=== PATIENT | female | born 1995 | race Caucasian/White ===

== ENCOUNTER 2016-09-01 17:56 | Emergency (ER) | payer MEDICAID ==
[2016-09-01 19:21] VITALS: BMI 30.5
[2016-09-01] MEDS ORDERED: Lactated Ringer's 1,000 ML IV SCH (19:30)
[2016-09-01 20:01] LABS: BASO % 0.2 % (0.0-2.0); EOS # 0.1 K/uL (0.0-0.7); EOS % 0.7 % (0.0-4.0); HEMATOCRIT 35.5 % (34.0-47.0); LYMPH # 1.1 K/uL (1.0-4.3); LYMPH % 10.7 % (20.0-40.0); MEAN CELL VOLUME 70.3 fl (81.0-99.0); MEAN CORPUSCULAR HGB CONC 31.3 g/dL (33.0-37.0); MEAN PLATELET VOLUME 9.8 fl (7.2-11.7); MONO # 0.7 K/uL (0.0-0.8); MONO % 7.1 % (0.0-10.0); NEUT # 8.2 K/uL (1.8-7.0); NEUT % 81.3 % (50.0-75.0); NRBC % 0.2 % (0.0-0.0); RED CELL DISTRIBUTION WIDTH 18.2 % (11.5-14.5); WHITE BLOOD COUNT 10.1 K/uL (4.8-10.8)
[2016-09-01 20:05] LABS: URINE BILIRUBIN NEGATIVE (NEGATIVE); URINE BLOOD NEGATIVE (NEGATIVE); URINE COLOR YELLOW (YELLOW); URINE GLUCOSE (UA) NEG (Normal); URINE KETONE TRACE mg/dL (NEGATIVE); URINE LEUKOCYTE ESTERASE NEG Leu/uL (Negative); URINE PROTEIN 30 mg/dL (NEGATIVE); URINE UROBILINOGEN 0.2-1.0 mg/dL (0.2-1.0)
[2016-09-01 20:14] LABS: ALKALINE PHOSPHATASE 174 U/L (38-126); ALT/SGPT 26 U/L (9-52); AST/SGOT 23 U/L (14-36); BILIRUBIN,TOTAL 0.4 mg/dl (0.2-1.3); BLOOD UREA NITROGEN 8 mg/dl (7-17); CALCIUM 9.2 mg/dL (8.4-10.2); CARBON DIOXIDE 20 mmol/L (22-30); CHLORIDE 105 mmol/L (98-107); GFR AFRICAN-AMERICAN > 60; GLUCOSE,RANDOM 96 mg/dL (65-105); POTASSIUM 3.9 MMOL/L (3.6-5.0); SODIUM 140 mmol/l (132-148); TOTAL PROTEIN 7.5 G/DL (6.3-8.2); URIC ACID 4.2 mg/Dl (2.2-7.5)
[2016-09-01 20:25] LABS: RBC URINE 2 /hpf (0-3); URINE BACTERIA MOD (<OCC); WBC URINE 4 /hpf (0-5)
--- NOTE | 2016-09-01 21:19 | OBHP ---
Datetime: 09/01/2016 19:03 IP Chief Complaint Other: Decreased FM, mucus bloody discharge Admit Comment, IP Provider: 20 y/o at 37w1d, IRMA: 09/21/16 based on US at 6w6d who presents c omplaining of two episodes of scant mucus bloody vaginal discharge, one yesterday and one today after noon around 3 pm and uterine contractions . Patient is unsure about leakage of fluids, and also repo rts decreased movements today. She is complaining of headaches since yesterday associated with nasal congestion, and blurry vision. PMHx: No reported Allergies: NKDA SHx: no reported Social: Denies smoking, etoh, and recreational drugs. Meds: PNV, Iron supplements BID O: VE: by Dr. Maddox : 1 cm, long and high labs: ABO/Rh: A pos, antibody screen: neg, HBsAg: neg, rubella: immune A: 20 y/o at 37w1d with uterine contractions in no active labor,headaches, and blurry visio n x 1 day. Plan: -Observation -VS Q4 -External FHR monitor -IV fluids/1 L bolus -Preeclampsia work up -Re-evaluation -Case discussed with Dr. Varsha Dowd PGY1 Addendum: I saw and examined patient up presentation. Patient observed at [facility]. Patient normotensive and vit al signs stable. Preeclamptic workup negative. heart tracing reactive. Patient discharged home with labor precautions. Varsha FHR - Baseline A Provider: 140 Membranes, Provider: Intact EGA AdmitDate IP: 37.1 Vital Signs Provider: Reviewed Vital Signs Provider Details: Notable for Tachycardic IP Chief Complaint: Uterine contractions; Suspected ruptured membranes NICHD Variability Prov Fetus A: Moderate 6-25bpm NICHD Accel Fetus A IP Provider: 15X15 FHR Category Provider Fetus A: Category I NICHD Decel Fetus A IP Provider: None
== END 2016-09-01 21:15 | disposition home or self-care (01) ==
LOC: H.EROB2 17:56
DX: O47.1 False labor at or after 37 completed weeks of gestation (principal); Z3A.37 37 weeks gestation of pregnancy

== ENCOUNTER 2016-09-06 02:20 | Inpatient (IN) | payer MEDICAID ==
[2016-09-06] MEDS: Lactated Ringer's 1,000 ML IV SCH ×2 (03:30→06:53)
[2016-09-06] MEDS ORDERED: Lactated Ringer's 1,000 ML IV SCH ×2 (03:30→05:00)
[2016-09-06 04:02] LABS: BASO % 0.2 % (0.0-2.0); EOS # 0.2 K/uL (0.0-0.7); EOS % 1.2 % (0.0-4.0); HEMATOCRIT 34.1 % (34.0-47.0); LYMPH # 2.9 K/uL (1.0-4.3); MEAN CORPUSCULAR HGB CONC 31.4 g/dL (33.0-37.0); MEAN PLATELET VOLUME 9.3 fl (7.2-11.7); MONO # 0.9 K/uL (0.0-0.8); MONO % 6.5 % (0.0-10.0); NEUT # 9.2 K/uL (1.8-7.0); NEUT % 70.1 % (50.0-75.0); RED CELL DISTRIBUTION WIDTH 18.1 % (11.5-14.5); WHITE BLOOD COUNT 13.1 K/uL (4.8-10.8)
[2016-09-06] MEDS ORDERED: Fentanyl/Bupivacaine HCl 250 ML EPI ONE (04:52)
[2016-09-06 05:40] VITALS: BP 125/86; PULSE 101; RESP 18
[2016-09-06] MEDS ORDERED: Lidocaine 1% Inj (20ml) ONE (07:31)
--- NOTE | 2016-09-06 11:47 | OBPN ---
Datetime: 09/06/2016 11:42 IP Progress Impression: Normal progression of labor; Reassuring heart rate IP Informed Consent Obtain: Vaginal Delivery IP Procedures: Sterile Vag Exam IP Progress Plan: Continue present management Contraction Comments Provider: Q3min FHR - Baseline A Provider: 130s IP Progress Note Comment: Labor progressing well. Both MWB/FWB reassuring at this time. Vital Signs Provider: Reviewed; Within Normal Limits NICHD Accel Fetus A IP Provider: 15X15 FHR Category Provider Fetus A: Category I NICHD Variability Prov Fetus A: Moderate 6-25bpm Dilatation, Provider: 10 Effacement, Provider: 100 Station, Provider: 0 NICHD Decel Fetus A IP Provider: None Datetime: 09/06/2016 03:24 Membranes, Provider: Intact Datetime: 09/01/2016 19:03 Vital Signs Provider Details: Notable for Tachycardic
[2016-09-06] MEDS ORDERED: Oxycodone/Acetaminophen 5/325 mg Tab PO PRN ×2 (12:50)
--- NOTE | 2016-09-06 12:55 | OBDS ---
DELIVERY PERSONNEL Delivery Doctor: Lucía Maddox MD Public Health Educator: Beverly Martin RN MATERNAL INFORMATION Delivery Anesthesia: Local; Epidural Medications in Delivery: Pitocin 20 units Placenta Cultured: No Maternal Complications: None Provider Comments: Normal spontaneous vaginal delivery. Patient delivered viable infant female with Apgars of 9 and 9 at one and 5 minutes respectively vi a ESTELLE position. Placenta delivered spontaneously. Lacerations repaired, as above. Uterus firm and bj ropriately hemostatic following delivery. Patient tolerated delivery and repair well. No complication s. EBL 300 mL LABOR SUMMARY EDC: 09/21/2016 00:00 No. Babies in Womb: 1 Attempted: No Labor Anesthesia: Epidural LABOR INFORMATION Reason for Induction: Not Applicable Oxytocin: N/A Group B Beta Strep: Negative Steroids Given: None Reason Steroids Not Administered: Not Applicable MEMBRANES Membranes Rupture Method: Spontaneous Rupture of Membranes: 09/06/2016 04:00 Length of Rupture (hrs): 8.23 Amniotic Fluid Color: Clear Amniotic Fluid Amount: Moderate Amniotic Fluid Odor: Normal STAGES OF LABOR Stage 3 hrs: 0 Stage 3 min: 3 VAGINAL DELIVERY Episiotomy: None Laceration Extension: Second Degree Laceration Type: Perineal; Periurethral Laceration Repair: Yes Laceration Repair Note: Second-degree midline perineal laceration and first-degree left periurethral laceration. Both areas infiltrated with 1% lidocaine. Lacerations both repaired with 2. 0 [address] sut ure. Lacerations hemostatic following repair. Patient tolerated repair well. No complications. BABY A INFORMATION Infant Delivery Date/Time: 09/06/2016 12:14 Method of Delivery: Vaginal Born in Route : No : N/A Forceps: N/A Vacuum Extraction: N/A Shoulder Dystocia : No SHOULDER DYSTOCIA BABY A Infant Delivery Date/Time: 09/06/2016 12:14 PRESENTATION/POSITION BABY A Presentation: Cephalic Cephalic Presentation: Vertex Breech Presentation: N/A PLACENTA INFORMATION BABY A Placenta Delivery Time : 09/06/2016 12:17 Placenta Method of Delivery: Spontaneous Placenta Status: Delivered SCORES BABY A Heart Rate 1 min: >100 bpm Resp Effort 1 min: Good Cry Reflex Irritability 1 min: Cough or Sneeze or Pulls Away Muscle Tone 1 min: Active Motion Color 1 min: Body [place], Extremities Blue Resuscitation Effort 1 min: Tactile Stimulation SCORE 1 MIN: 9 Heart Rate 5 min: >100 bpm Resp Effort 5 min: Good Cry Reflex Irritability 5 min: Cough or Sneeze or Pulls Away Muscle Tone 5 min: Active Motion Color 5 min: Body [place], Extremities Blue Resuscitation Effort 5 min: Tactile Stimulation SCORE 5 MIN: 9 INFORMATION BABY A Gestational Age at Delivery: 37.0 Gestational Status: Term Outcome : Liveborn Infant Condition : Stable Infant Sex: Female IDENTIFICATION/MEDS BABY A ID Band Number: [id number] ID Band Location: Left Leg; Left Arm WEIGHT/LENGTH BABY A Birthweight (gms): 3170 Weight (lb): 7 Infant Weight (oz): 0 CORD INFORMATION BABY A No. Cord Vessels: 3 Nuchal Cord : N/A Cord Blood Taken: N/A Infant Suction: None ASSESSMENT BABY A Infant Complications: None Physical Findings at Delivery: Within Normal Limits Infant Respirations: Appears Normal Optical Worker/ALS Called : No Care By: Beverly Salmon/Joanna Hernandez Transferred To: Remains with Mother
[2016-09-06 13:08] VITALS: TEMP 98.9
[2016-09-07 08:07] LABS: BASO % 0.2 % (0.0-2.0); EOS # 0.2 K/uL (0.0-0.7); HEMATOCRIT 32.4 % (34.0-47.0); LYMPH % 21.4 % (20.0-40.0); MEAN CELL VOLUME 69.9 fl (81.0-99.0); MEAN CORPUSCULAR HEMOGLOBIN 21.8 pg (27.0-31.0); MEAN CORPUSCULAR HGB CONC 31.1 g/dL (33.0-37.0); MEAN PLATELET VOLUME 9.2 fl (7.2-11.7); MONO # 0.8 K/uL (0.0-0.8); MONO % 4.4 % (0.0-10.0); NEUT # 13.5 K/uL (1.8-7.0); NRBC % 0.1 % (0.0-0.0); RED CELL DISTRIBUTION WIDTH 18.2 % (11.5-14.5); WHITE BLOOD COUNT 18.6 K/uL (4.8-10.8)
--- NOTE | 2016-09-07 19:26 | OBPPN ---
Datetime: 09/07/2016 06:26 PP Pain Prov: Within normal limits PP Nausea Prov: Denies PP Flatus Prov: Yes PP Breasts Prov: Normal PP Heart Prov: Normal PP Lungs Prov: Normal PP Abdomen/Uterus Prov: Normal PP Lochia Prov: Normal PP Vulva/Perineum Prov: Normal PP CVA Tenderness Prov: Normal PP Extremities Prov: Normal PP C/S Incision Prov: Not Applicable PP Progress Prov: Normal PP Comments Phys Exam Prov: No acute distress. Comfortable in bed. Lungs CTA b/l. RRR S1S2. Abd: soft, uterus umb level firm. +BS no calf tenderness Alert, oriented PP Impression Prov: Normal progression PP Plan Prov: Continue present management PP Progress Note Prov: PPD1 Patient seen at bedside on PPD1 s/p NVD. Denies nausea, vomiting or headache. Lochia like menses, pain is controlled with motrin. +Flatus, no BM yet. Voiding with no difficulty. Ambulating with no di fficulty. Tolerating PO. Denies calf pain. O:See above A: 20 y/o S/P NVD on PPD1 normal progression P: Cont Motrin PRN for pain Cont Reg diet Encourage ambulation Encouraged to cont Anticipated DC 09/08/16 Petey Hardy PGY1 obh addendum: pt seen _ examined by me. agree with above assessment and plan. IP PP Procedures: None Vital Signs Provider PP: Reviewed; Within Normal Limits
[2016-09-07] MEDS ORDERED: Lansinoh for Breast Feeding Mothers TP ONE (21:25)
--- NOTE | 2016-09-08 09:54 | OBDCSUM ---
Datetime: 09/08/2016 06:06 Discharged to, Provider: Home Follow up at, Provider: [facility] Disch Instr Activity: Normal activity Disch Instr Diet: Regular Discharge Instructions, Provider: Routine instructions given Discharge Diagnosis, Provider: Term Delivered Discharge Time: 09/08/2016 11:00 Follow up in weeks, Provider: 6 weeks Disch Referrals: None Contraception discussed, Prov: Yes Disch Activity Restrictions: No lifting; No driving; No sexual activity; Nothing in vagina - Interco urse, tampons, douche Discharge Comment, Provider: Patient doing well on PPD2 s/p NVD. Denies nausea, vomiting or headache. Lochia like menses, pain is controlled with motrin. +Flatus, no BM yet. Voiding with no difficulty. Ambulating with no difficu lty. Tolerating PO. Denies calf pain. A: 20 y/o S/P NVD on PPD2 normal progression P: DC home Cont Motrin PRN for pain F/U with PMD at [facility] in 6 weeks Instructed to return to ED if heavy bleeding, fever, severe pain or any other concerns Petey Hardy PGY1 Contraception after Delivery: Undecided
--- NOTE | 2016-09-08 09:54 | OBPPN ---
Datetime: 09/08/2016 06:04 PP Pain Prov: Within normal limits PP Nausea Prov: Denies PP Flatus Prov: Yes PP BM Prov: No PP Breasts Prov: Normal PP Heart Prov: Normal PP Lungs Prov: Normal PP Abdomen/Uterus Prov: Normal PP Lochia Prov: Normal PP Vulva/Perineum Prov: Normal PP CVA Tenderness Prov: Normal PP Extremities Prov: Normal PP C/S Incision Prov: Not Applicable PP Progress Prov: Normal PP Comments Phys Exam Prov: No acute distress. Comfortable in bed. Lungs CTA b/l. RRR S1S2. Abd: soft, uterus below umb level firm. +BS no calf tenderness Alert, oriented PP Impression Prov: Normal progression PP Plan Prov: Continue present management; Discharge PP Progress Note Prov: PPD2 Patient seen at bedside on PPD2 s/p NVD. Denies nausea, vomiting or headache. Lochia less than men ses, pain is controlled with motrin. +Flatus, no BM yet. Voiding with no difficulty. Ambulating with no difficulty. Tolerating PO. Denies calf pain. O:See above A: 20 y/o S/P NVD on PPD2 normal progression P: Cont Motrin PRN for pain Cont Reg diet Encourage ambulation Encouraged to cont Anticipated DC Today Petey Hardy PGY1 Addendum by attending: Patient evaluated independently and I agree with the above. Patient for dis charge today, all discharge instructions have been reviewed IP PP Procedures: None Vital Signs Provider PP: Reviewed; Within Normal Limits
== END 2016-09-08 04:34 | disposition home or self-care (01) | DRG 373 ==
LOC: H.EROB2 02:20 → H.L&D 03:17 → H.OB/GYN 17:45
PROVIDERS: ADMIT Obstetrics & Gynecology Gynecology; ATTEND Obstetrics & Gynecology Gynecology
PROC: 10E0XZZ Delivery of Products of Conception, External Approach (ICD-10-PCS; principal; 2016-09-06)
PROC: 0KQM0ZZ Repair Perineum Muscle, Open Approach (ICD-10-PCS; 2016-09-06)
PROC: 0UQMXZZ Repair Vulva, External Approach (ICD-10-PCS; 2016-09-06)
PROC: 4A1HXCZ Monitoring of Products of Conception, Cardiac Rate, External Approach (ICD-10-PCS; 2016-09-06)
DX: O70.1 Second degree perineal laceration during delivery (principal); O71.82 Other specified trauma to perineum and vulva; Z3A.39 39 weeks gestation of pregnancy; Z37.0 Single live birth

== ENCOUNTER 2016-11-26 21:29 | Emergency (ER) | payer MEDICAID, OTHER ==
[2016-11-26 21:29] VITALS: BMI 30.5
[2016-11-26 22:26] VITALS: RESP 16
[2016-11-26] MEDS ORDERED: Lactated Ringer's 1,000 ML IV STA (23:08)
--- NOTE | 2016-11-26 23:44 | ED PDOC ---
HPI: General Adult Time Seen by Provider: 11/26/16 22:58 Chief Complaint (Nursing): Fever Chief Complaint (Provider): Fever, Rash, Sore Throat History Per: Patient History/Exam Limitations: no limitations Onset/Duration Of Symptoms: Days (x3) Have you had recent travel within the past 21 days to any of the following countries: [place], [place], [place] or [place]?: No Current Symptoms Are (Timing): Still Present Severity: None Additional Complaint(s): 20 year old female presents to ED with complaints of fever, rash, and sore throat x3 days and has no past medical history. Patient notes that she is x2 months and had a healthy, full term baby. States that her fever reduces temporarily with Motrin, but keeps recurring. Localizes rash to her hands, arms, and trunk and reports that rash initially started on her hand. Notes that throat pain is exacerbated by talking or swallowing. (-) rhinorrhea, cough, diarrhea, sick contacts, exposure to insect, or lotions/foods. (+) intermittent episodes of nonbloody, nonbilious vomiting. PCP: None Past Medical History Reviewed: Historical Data, Nursing Documentation, Vital Signs Vital Signs: Last Vital Signs Temp 99.7 F H 11/27/16 00:55 Pulse 87 11/27/16 00:55 Resp 16 11/27/16 00:55 BP 125/65 11/27/16 00:55 Pulse Ox 100 11/27/16 14:58 - Medical History PMH: No Chronic Diseases Denies: HIV - Surgical History Surgical History: Tonsillectomy - Family History Family History: States: Other - Social History Current smoker - smoking cessation education provided: No Ex-Smoker (has not smoked in the last 12 months): No Alcohol: None Drugs: Denies - Home Medications Home Medications: Ambulatory Orders Medication Instructions Recorded Ferrous Sulfate [Feosol] 1 tab PO DAILY 09/01/16 Vit Calc,Iron,Folic 1 tab PO DAILY 09/01/16 [ Vitamins] Ibuprofen [Motrin Tab] 600 mg PO Q6 PRN #30 tab 09/08/16 - Allergies Allergies/Adverse Reactions: Allergies Allergy/AdvReac Type Severity Reaction Status Date / Time No Known Allergies Allergy Verified 09/01/16 19:33 Review of Systems ROS Statement: Except As Marked, All Systems Reviewed And Found Negative Constitutional: Positive for: Fever ENT: Positive for: Throat Pain. Negative for: Nose Discharge Respiratory: Negative for: Cough Gastrointestinal: Positive for: Vomiting (intermittent nonbilious/nonbloody). Negative for: Diarrhea Skin: Positive for: Rash (on hands, arms, and trunk of body) Physical Exam - Reviewed Nursing Documentation Reviewed: Yes Vital Signs Reviewed: Yes - Physical Exam Appears: Positive for: Non-toxic, No Acute Distress (tired appearing) Skin: Positive for: Warm, Dry, Rash (papular rash to hands, trunk, back, and arms of body. Feet and legs are spared) ENT: Positive for: Pharyngeal Erythema. Negative for: Normal ENT Inspection ( dry mucous membranes), Tonsillar Exudate, Tonsillar Swelling Neck: Positive for: Normal Cardiovascular/Chest: Positive for: Regular Rate, Rhythm, Tachycardia Respiratory: Positive for: Normal Breath Sounds. Negative for: Respiratory Distress Gastrointestinal/Abdominal: Positive for: Normal Exam, Soft. Negative for: Tenderness Back: Positive for: Normal Inspection Extremity: Positive for: Normal ROM, Other (large lesion on 2nd web space of right hand. Patient states this is where rash initially started). Negative for : Deformity Neurologic/Psych: Positive for: Alert, Oriented. Negative for: Motor/Sensory Deficits - Laboratory Results Result Diagrams: 11/26/16 23:44 11/26/16 23:44 - ECG O2 Sat by Pulse Oximetry: 100 (RA) Pulse Ox Interpretation: Normal Medical Decision Making Medical Decision Makin Initial impression: pharyngitis and rash DDx: coxsackie, viral illness, strep, dehydration Initial plan: * Labs * Lactated Ringers IV * Toradol 15mg IVP * Acetaminophen 975mg PO * BCx * Rapid Strep * Re-eval Scribe Attestation: Documented by Janay Patel acting as a scribe for Veronica Avalos MD. Scribe Attestation: All medical record entries made by the Scribe were at my direction and personally dictated by me. I have reviewed the chart and agree that the record accurately reflects my personal performance of the history, physical exam, medical decision making, and the department course for this patient. I have also personally directed, reviewed, and agree with the discharge instructions and disposition. Disposition - Clinical Impression Clinical Impression: Viral illness - Disposition Disposition: Transfer of Care Disposition Time: 00:00 Condition: STABLE Print Language: GREENLANDIC Patient Signed Over To: Brennan Dickey Handoff Comments: Pending ER workup, reassessment, final ER dispo
[2016-11-26 23:52] LABS: BASO % 0.4 % (0.0-2.0); HEMATOCRIT 39.1 % (34.0-47.0); LYMPH # 0.8 K/uL (1.0-4.3); LYMPH % 24.6 % (20.0-40.0); MEAN CORPUSCULAR HEMOGLOBIN 24.4 pg (27.0-31.0); MEAN CORPUSCULAR HGB CONC 32.5 g/dL (33.0-37.0); MEAN PLATELET VOLUME 8.8 fl (7.2-11.7); MONO # 0.1 K/uL (0.0-0.8); MONO % 3.8 % (0.0-10.0); NEUT # 2.2 K/uL (1.8-7.0); NEUT % 71.2 % (50.0-75.0); NRBC % 0.2 % (0.0-0.0); RED CELL DISTRIBUTION WIDTH 18.6 % (11.5-14.5); WHITE BLOOD COUNT 3.1 K/uL (4.8-10.8)
[2016-11-26 23:59] LABS: ALB/GLOB RATIO 1.3 (1.0-2.1); ALKALINE PHOSPHATASE 80 U/L (38-126); ALT/SGPT 45 U/L (9-52); AST/SGOT 60 U/L (14-36); BILIRUBIN,TOTAL 0.4 mg/dl (0.2-1.3); BLOOD UREA NITROGEN 16 mg/dl (7-17); CALCIUM 9.4 mg/dL (8.4-10.2); CARBON DIOXIDE 22 mmol/L (22-30); CHLORIDE 106 mmol/L (98-107); GFR AFRICAN-AMERICAN > 60; GLUCOSE,RANDOM 96 mg/dL (65-105); POTASSIUM 3.8 MMOL/L (3.6-5.0); SODIUM 141 mmol/l (132-148); TOTAL PROTEIN 7.3 G/DL (6.3-8.2)
--- NOTE | 2016-11-27 00:19 | ED PDOC ---
- Laboratory Results Result Diagrams: 11/26/16 23:44 11/26/16 23:44 - ECG O2 Sat by Pulse Oximetry: 100 (RA) Medical Decision Making Medical Decision Makin Patient signed out from Dr. Avalos to provider pending re-evaluation and strep test. [id number] Strep test: negative Upon re-evaluation, patient feels improved and is medically stable for discharge home. Dx: viral syndrome Patient will follow up with PCP x2 days. Scribe Attestation: Documented by Janay Patel acting as a scribe for Brennan Dickey MD. Scribe Attestation: All medical record entries made by the Scribe were at my direction and personally dictated by me. I have reviewed the chart and agree that the record accurately reflects my personal performance of the history, physical exam, medical decision making, and the department course for this patient. I have also personally directed, reviewed, and agree with the discharge instructions and disposition. Disposition - Clinical Impression Clinical Impression: Viral illness - POA Present On Arrival: None - Disposition Disposition: Routine/Home Disposition Time: 00:29 Condition: STABLE Instructions: Viral Syndrome (ED) Print Language: KENYAN
[2016-11-27 00:57] VITALS: BP 125/65; PULSE 87; TEMP 99.7
[2016-11-27 14:59] VITALS: O2SAT 100
== END 2016-11-27 00:57 | disposition home or self-care (01) ==
LOC: H.ER 21:29
DX: B34.9 Viral infection, unspecified (principal)